=== PATIENT | male | born 1960 | race Caucasian/White ===

== ENCOUNTER 2021-01-24 11:35 | Emergency (ER) | payer OTHER ==
[~2021-01-24] VITALS: Ht 185.4 cm; Wt 74.8 kg
[~2021-01-24 11:35] MED LIST: KALETRA 200-501 TAB PO; NEVIRAPINE200 MG PO; VIREAD PO
[2021-01-24] MEDS ORDERED: ULTRAM50 MG PO (11:42)
[2021-01-24] MEDS ORDERED: LIDOCAINE PAIN1 EACH TD (11:42)
== END 2021-01-24 13:01 | disposition home or self-care (01) ==
LOC: ER 11:39
DX: M25.551 Pain in right hip (principal); G89.29 Other chronic pain; K76.9 Liver disease, unspecified; B20 Human immunodeficiency virus [HIV] disease
CPT/HCPCS: 99283

== ENCOUNTER 2021-05-15 13:59 | Emergency (ER) | payer OTHER ==
[~2021-05-15] VITALS: Ht 185.4 cm; Wt 74.8 kg
[~2021-05-15 13:59] MED LIST changes: +LIDOCAINE PAIN1 EACH TD; +ULTRAM50 MG PO
== END 2021-05-15 15:09 | disposition home or self-care (01) ==
LOC: ER 14:47
DX: G89.29 Other chronic pain (principal); Z21 Asymptomatic human immunodeficiency virus [HIV] infection status; Z88.1 Allergy status to other antibiotic agents; Z88.2 Allergy status to sulfonamides; Z88.0 Allergy status to penicillin; Z86.19 Personal history of other infectious and parasitic diseases; Z90.01 Acquired absence of eye
CPT/HCPCS: 99282